=== PATIENT | female | born 2000 | race American Indian/Alaskan Native ===

== ENCOUNTER 2019-06-04 20:41 | Emergency (ER) | payer MEDICAID ==
--- NOTE | 2019-06-04 21:02 | EDM.PDOC ---
ED HPI GENERAL MEDICAL PROBLEM - General Chief Complaint: ENT Problem Stated Complaint: LEFT EAR PAIN Time Seen by Provider: 06/04/19 21:30 Source of Information: Reports: Patient History Limitations: Reports: Language Barrier, Other (autism) - History of Present Illness Onset: Today Quality: Reports: Ache, Other (drainage from L ear) Worsens with: Reports: None - Related Data Allergies Allergy/AdvReac Type Severity Reaction Status Date / Time No Known Allergies Allergy Verified 06/04/19 20:56 Home Meds: Home Meds NK [No Known Home Meds] 06/04/19 [History] Past Medical History Musculoskeletal History: Reports: Other (See Below) (Recent left tibia avulsion fracture) Neurological History: Reports: Other (See Below) (Autism) ED ROS ENT - Review of Systems Review Of Systems: See Below Constitutional: Denies: Fever HEENT: Reports: Ear Discharge (L), Ear Pain, Rhinitis Respiratory: Denies: Shortness of Breath, Cough Cardiovascular: Reports: No Symptoms GI/Abdominal: Reports: No Symptoms Musculoskeletal: Reports: Joint Pain (L knee. In immobilizer) Skin: Reports: No Symptoms ED EXAM, ENT - Physical Exam Exam: See Below Exam Limited By: Uncooperative General Appearance: Alert, No Apparent Distress Ears: Normal External Exam, TM Fluid, TM Perforation (Yellow purulent fluid in left external auditory canal consistent with tympanic membrane rupture) Nose: Normal Inspection, Normal Mucousa. No: Nasal Discharge Mouth/Throat: Normal Inspection, Normal Gums Head: Atraumatic, Normocephalic Respiratory/Chest: No Respiratory Distress, Lungs Clear Cardiovascular: Normal Peripheral Pulses, Regular Rate, Rhythm, No Murmur Course - Vital Signs Last Recorded V/S: Last Vital Signs Temp 36.6 C 06/04/19 21:07 Pulse 76 06/04/19 21:07 Resp 18 06/04/19 21:07 BP 117/77 06/04/19 21:07 Pulse Ox 96 06/04/19 21:07 - Orders/Labs/Meds Meds: Medications Discontinued Medications Generic Name Dose Route Start Last Admin Trade Name Freq PRN Reason Stop Dose Admin Amoxicillin 500 mg 06/04/19 21:40 Amoxil PO 06/04/19 21:41 ONETIME ONE Departure - Departure Time of Disposition: 21:40 Disposition: Home, Self-Care 01 Condition: Good Clinical Impression: Left otitis media with spontaneous rupture of eardrum - Discharge Information Referrals: PCP,None [Primary Care Provider] - Forms: ED Department Discharge Additional Instructions: Use Cortisporin drops in left ear. Put 3 drops in well she is lying on her right side. Gently worked the drops into the ear. Leave drops in for 5 minutes then have them drain out on a paper toe or Kleenex. Finish full 10 days of amoxicillin, then have ear reexamined by a primary care provider Sepsis Event Note - Focused Exam Vital Signs: Vital Signs Temp Pulse Resp BP Pulse Ox 06/04/19 21:07 36.6 C 76 18 117/77 96 06/04/19 21:06 36.6 C 76 18 117/77 96 Date Exam was Performed: 06/04/19 Time Exam was Performed: 21:44
[2019-06-04] MEDS ORDERED: Amoxicillin 500 MG Cap PO ONE (21:40)
== END 2019-06-04 21:55 | disposition home or self-care (01) ==
LOC: JP.ED 20:41
DX: H66.92 Otitis media, unspecified, left ear (principal)
CPT/HCPCS: 99282; 99283; A9270